=== PATIENT | female | born 1995 | race Caucasian/White ===

== ENCOUNTER 2016-10-16 11:57 | Inpatient (IN) | payer OTHER ==
[2016-10-16 12:59] LABS: Hematocrit 30 % (35-47); Hemoglobin 9.2 g/dl (12.0-16.0); Mean Corpuscular HGB Conc 31 g/dl (31-36); Mean Corpuscular Hemoglobin 21 pg (27-31); Mean Corpuscular Volume 67 fL (80-97); Mean Platelet Volume 8 um3 (7.4-10.4); Red Blood Count 4.48 10^6/ul (4.0-5.4); Red Cell Distribution Width 19 % (10.5-15); White Blood Count 12.5 10^3/ul (3.5-10.8)
[2016-10-16] MEDS ORDERED: OBEPIDURAL* 250 ML ONE (13:01)
[2016-10-16 13:07] LABS: Comments Flag Yes
[2016-10-16 13:08] LABS: Add Diff/Slide Review? Slide Review Added
[2016-10-16] MEDS ORDERED: Sodium Citrate/Citric Acid* 15 ML UDC PO PRN (13:33)
[2016-10-16] MEDS ORDERED: Phenylephrine IV* 40 MCG/ML 10 ML SYRINGE IV PUSH PRN ×2 (13:33)
[2016-10-16] MEDS ORDERED: Famotidine TAB* 20 MG PO PRN (13:33)
[2016-10-16 13:41] LABS: Microcytosis 2+
[2016-10-16 13:43] LABS: Tear Drop Cells 1+
[2016-10-16 13:44] LABS: Add Path Review? YES; Polychromasia 1+
[2016-10-16] MEDS ORDERED: OBEPIDURAL* 250 ML EPIDURAL SCH (14:00)
[2016-10-16] MEDS ORDERED: Measles, Mumps,Rubella VACC* 0.5 ML/VIAL SUBCUT ONE (18:40)
[2016-10-16] MEDS ORDERED: Witch Hazel PAD* JAR TOPICAL PRN (18:40)
[2016-10-16] MEDS ORDERED: Dibucaine 1% 28.35 GM TUBE PR PRN (18:40)
[2016-10-16] MEDS ORDERED: Glycerin ADULT SUPP PR PRN (18:40)
[2016-10-16] MEDS: Ibuprofen TAB* 600 MG PO PRN (19:41)
[2016-10-16] MEDS: Docusate CAP* 100 MG PO SCH (21:09)
[2016-10-17] MEDS: Ibuprofen TAB* 600 MG PO PRN ×3 (04:28→17:04)
[2016-10-17 06:51] LABS: Hematocrit 24 % (35-47); Hemoglobin 7.4 g/dl (12.0-16.0); Mean Corpuscular HGB Conc 31 g/dl (31-36); Mean Corpuscular Hemoglobin 21 pg (27-31); Mean Platelet Volume 8 um3 (7.4-10.4); Red Blood Count 3.63 10^6/ul (4.0-5.4); Red Cell Distribution Width 19 % (10.5-15); White Blood Count 13.9 10^3/ul (3.5-10.8)
[2016-10-17 07:03] LABS: Comments Flag Yes; Mean Corpuscular Volume 67 fL (80-97)
[2016-10-17] MEDS: Docusate CAP* 100 MG PO SCH ×3 (08:00→22:09)
[2016-10-17] MEDS: Acetaminophen TAB* 325 MG PO PRN ×3 (08:00→22:09)
[2016-10-17] MEDS: Ferrous Gluconate TAB* 324 MG TAB PO SCH ×2 (09:14→22:09)
[2016-10-18] MEDS: Ibuprofen TAB* 600 MG PO PRN ×2 (00:07→06:26)
[2016-10-18 08:23] VITALS: BP 104/54
[2016-10-18] MEDS: Acetaminophen TAB* 325 MG PO PRN (09:27)
[2016-10-18] MEDS: Docusate CAP* 100 MG PO SCH (09:27)
[2016-10-18] MEDS: Ferrous Gluconate TAB* 324 MG TAB PO SCH (09:27)
== END 2016-10-18 11:10 | disposition home or self-care (01) | DRG 560 ==
LOC: MCHOBOUT 11:57 → MCHOB 12:26
PROVIDERS: ADMIT Midwife; ATTEND Midwife
PROC: 10E0XZZ Delivery of Products of Conception, External Approach (ICD-10-PCS; principal; 2016-10-16)
PROC: 0HQ9XZZ Repair Perineum Skin, External Approach (ICD-10-PCS; 2016-10-16)
PROC: 10907ZC Drainage of Amniotic Fluid, Therapeutic from Products of Conception, Via Natural or Artificial Opening (ICD-10-PCS; 2016-10-16)
PROC: 4A1HXCZ Monitoring of Products of Conception, Cardiac Rate, External Approach (ICD-10-PCS; 2016-10-16)
DX: O48.0 Post-term pregnancy (principal); C95.91 Leukemia, unspecified, in remission; Z3A.40 40 weeks gestation of pregnancy; Z37.0 Single live birth; Z88.5 Allergy status to narcotic agent; Z88.0 Allergy status to penicillin; Z88.1 Allergy status to other antibiotic agents; O32.6XX0 Maternal care for compound presentation, not applicable or unspecified; O69.2XX0 Labor and delivery complicated by other cord entanglement, with compression, not applicable or unspecified; O70.0 First degree perineal laceration during delivery; O90.81 Anemia of the puerperium
CPT/HCPCS: 36415; 85025; 85060; 86850; 86900; 86901; 90707; A9270-GY

== ENCOUNTER 2017-06-15 15:00 | Emergency (ER) | payer OTHER | END 2017-06-15 20:54 | disposition left against medical advice (07) | LOC: UCEAST 15:00 | DX: R21 Rash and other nonspecific skin eruption (principal); Z53.21 Procedure and treatment not carried out due to patient leaving prior to being seen by health care provider ==

== ENCOUNTER 2017-07-20 10:38 | Emergency (ER) | payer OTHER ==
[2017-07-20 10:54] VITALS: BP 126/75
--- NOTE | 2017-07-20 10:57 | UC ---
FLU HPI - HPI Summary HPI Summary: Pt presents with fever, body aches, and fatigue since yesterday. She tells me that yesterday her boyfriend was diagnosed with the flu and they live together - so she is concerned that she has it. Has been taking ibuprofen with mild relief. Denies sore throat, SOB, chest pain, abdominal pain, n/v/d/c. - History of Current Complaint Chief Complaint: UCGeneralIllness Stated Complaint: FLU SYMPTOMS Time Seen by Provider: 07/20/17 10:51 Hx Obtained From: Patient Hx Last Menstrual Period: 01/07/16 Onset/Duration: Sudden Onset Severity Currently: Moderate Severity Initially: Moderate Pain Intensity: 6 Pain Scale Used: 0-10 Numeric - Allergy/Home Medications Allergies/Adverse Reactions: Allergies Allergy/AdvReac Type Severity Reaction Status Date / Time morphine Allergy Nausea Verified 07/20/17 10:55 Penicillins Allergy Hives Verified 07/20/17 10:55 Home Medications: Home Medications NK [No Home Medications Reported] 07/20/17 [History Confirmed 07/20/17] PMH/Surg Hx/FS Hx/Imm Hx Previously Healthy: Yes - Surgical History Surgical History: None - Family History Known Family History: Positive: None Negative: Cardiac Disease, Respiratory Disease - Social History Occupation: Employed Full-time Lives: With Family Alcohol Use: None Substance Use Type: None Smoking Status (MU): Never Smoked Tobacco Have You Smoked in the Last Year: No Household Exposure Type: Cigarettes - Immunization History Most Recent Influenza Vaccination: 01/2016 Most Recent Tetanus Shot: 2011 Most Recent Pneumonia Vaccination: none Review of Systems Constitutional: Fever, Fatigue, Other - Body aches Skin: Negative Eyes: Negative Respiratory: Negative Cardiovascular: Negative Gastrointestinal: Negative Musculoskeletal: Negative Neurological: Negative Psychological: Negative All Other Systems Reviewed And Are Negative: Yes Physical Exam - Summary Physical Exam Summary: GENERAL: Mildly ill appearing. NAD. WDWN. No pain distress. SKIN: No rashes, sores, ulcers, masses, lesions. HEENT: Head: AT/NC Eyes: EOM intact. Conjunctiva clear without inflammation or discharge. Ears: Hearing grossly normal. TMs intact, no bulging, erythema, or edema. Nose: Nasal mucosa pink and moist. NTTP maxillary and frontal sinus. Throat: Posterior oropharynx without exudates, erythema, or tonsillar enlargement. Uvula midline. NECK: Supple. Nontender. No lymphadenopathy. CHEST: CTAB. No r/r/w. No accessory muscle use. Breathing comfortably and in no distress. CV: RRR. Without m/r/g. Pulses intact. Brisk cap refill. NEURO: Alert. CN II-XII grossly intact. PSYCH: Age appropriate behavior. Triage Information Reviewed: Yes Vital Signs: Initial Vital Signs Temp 99.3 F 07/20/17 10:50 Pulse 113 07/20/17 10:50 BP 126/75 07/20/17 10:50 Pulse Ox 100 07/20/17 10:50 Flu Course/Dx - Course Course Of Treatment: POC flu negative. Suspect viral illness. Advised rest, fluids, and ibuprofen prn - Differential Dx/Diagnosis Provider Diagnoses: Viral syndrome Discharge - Discharge Plan Condition: Stable Disposition: HOME Patient Education Materials: Viral Syndrome (ED) Forms: *Work Release Referrals: Andrew Cordero MD [Primary Care Provider] - Additional Instructions: If you develop a fever, shortness of breath, chest pain, new or worsening symptoms - please call your PCP or go to the ED.
== END 2017-07-20 11:28 | disposition home or self-care (01) ==
LOC: UCEAST 10:38
DX: B34.9 Viral infection, unspecified (principal); Z88.5 Allergy status to narcotic agent; Z88.0 Allergy status to penicillin
CPT/HCPCS: 87502; 99211; G0463

== ENCOUNTER 2018-07-18 15:43 | Emergency (ER) | payer OTHER ==
[2018-07-18 15:58] VITALS: BP 124/80
--- NOTE | 2018-07-18 16:35 | UC ---
General HPI - HPI Summary HPI Summary: Pleasant 23 yo female with mid low, central back pain. Started yesterday, shortly after using rowing machine. Progressively worse. Has used machine before without problems, recently getting back into shape. No known prior back inj. No p/d/w. No b/b issues. Does not have a pcp. Took ibuprofen approx 13:00 minimal relief. all amox, morph, pcn - History of Current Complaint Chief Complaint: UCBackPain Stated Complaint: BACK PAIN Hx Obtained From: Patient Hx Last Menstrual Period: 1 year ago; has nexplanon implant Pain Intensity: 3 - Allergy/Home Medications Allergies/Adverse Reactions: Allergies Allergy/AdvReac Type Severity Reaction Status Date / Time amoxicillin Allergy Hives Verified 07/18/18 15:52 morphine Allergy Nausea Verified 07/18/18 15:52 Penicillins Allergy Hives Verified 07/18/18 15:52 Home Medications: Home Medications Ibuprofen [Advil Liqui-Gels] 600 mg PO Q8HR PRN 07/18/18 [History Confirmed ] PMH/Surg Hx/FS Hx/Imm Hx Previously Healthy: Yes - Surgical History Surgical History: None - Family History Known Family History: Positive: None Negative: Cardiac Disease, Respiratory Disease - Social History Alcohol Use: None Substance Use Type: None Smoking Status (MU): Never Smoked Tobacco Have You Smoked in the Last Year: No Household Exposure Type: Cigarettes - Immunization History Most Recent Influenza Vaccination: 01/2016 Most Recent Tetanus Shot: 2011 Most Recent Pneumonia Vaccination: none Review of Systems All Other Systems Reviewed And Are Negative: Yes Constitutional: Positive: Other - see hpi Skin: Positive: Other - see hpi Eyes: Positive: Other - see hpi ENT: Positive: Other - see hpi Respiratory: Positive: Other - see hpi Cardiovascular: Positive: Other - see hpi Gastrointestinal: Positive: Other - see hpi Genitourinary: Positive: Other - see hpi Motor: Positive: Other - see hpi Neurovascular: Positive: Other - see hpi Musculoskeletal: Positive: Other: - see hpi Neurological: Positive: Other - see hpi Psychological: Positive: Negative Is Patient Immunocompromised?: No Physical Exam Triage Information Reviewed: Yes Appearance: Well-Nourished - sitting up, looks uncomfortable, veronica with movement and bending forward Vital Signs: Initial Vital Signs Temp 98.4 F 07/18/18 15:53 Pulse 92 07/18/18 15:53 Resp 18 07/18/18 15:53 BP 124/80 07/18/18 15:53 Pulse Ox 99 07/18/18 15:53 Vital Signs Reviewed: Yes Eye Exam: Normal ENT Exam: Normal Neck exam: Normal Neck: Positive: Supple, Nontender Respiratory Exam: Normal Cardiovascular Exam: Normal Abdominal Exam: Normal Abdomen Description: Positive: Nontender Musculoskeletal Exam: Other Neurological Exam: Normal - nonfocal distal + LT sens present. Able to stand on toes. Denies b/b issues. Psychological Exam: Normal Skin Exam: Normal - no visible or reporte rash Course/Dx - Course Course Of Treatment: Declines ketoralac injection. Reviewed xray reports with pt. + mild DG disc dz lower dorsal spine. No fx. + scoliosis. Reviewed coa / tx plan. [facility] [place]. Questions as posed answered to the best of my ability. - Diagnoses Provider Diagnosis: Degenerative disc disease, Low back strain Discharge - Sign-Out/Discharge Documenting (check all that apply): Patient Departure All imaging exams completed and their final reports reviewed: Yes - Discharge Plan Condition: Stable Disposition: HOME Patient Education Materials: Low Back Strain (ED), Degenerative Disc Disease ( ED) Forms: *Work Release Referrals: [facility] [place] [Outside] Mj Buck [Medical Doctor] - No Primary Care Phys,NOPCP [Primary Care Provider] - Additional Instructions: Follow up with a primary care physician, if possible in the next month. Seek medical attention for worse or new problems in the meantime. Sports medicine. Next available. Do not return to exercise program until you are feeling pain free, and ok by your doctor. - Billing Disposition and Condition Condition: STABLE Disposition: Home
== END 2018-07-18 17:45 | disposition home or self-care (01) ==
LOC: UCEAST 15:43
DX: S39.012A Strain of muscle, fascia and tendon of lower back, initial encounter (principal); X58.XXXA Exposure to other specified factors, initial encounter; Y93.B1 Activity, exercise machines primarily for muscle strengthening; Y92.9 Unspecified place or not applicable; Z88.5 Allergy status to narcotic agent; Z88.0 Allergy status to penicillin
CPT/HCPCS: 72070; 72110; 84702; 99211; G0463